=== PATIENT | male | born 1970 | race Caucasian/White ===

== ENCOUNTER 2016-07-14 21:10 | Emergency (ER) | payer OTHER ==
[~2016-07-14] VITALS: Ht 172.7 cm; Wt 75.5 kg
[~2016-07-14 21:10] MED LIST: ALBU8.5H3 INH; AZIT250T94 PO; CETI10CA PO; PRED20TA PO
[2016-07-14 21:14] VITALS: Ht 172.7 cm; Wt 75.5 kg
[2016-07-14] MEDS ORDERED: ALBUTEROL 0.083% (NEB) 2.5 MG/3 ML AMP HHN STA (21:21)
[2016-07-14] MEDS ORDERED: DEXAMETHASONE 10 MG/ML 1 ML INJ IM ONE (21:30)
[2016-07-14] MEDS ORDERED: IPRATROPIUM (NEB) 0.5 MG/2.5 ML AMP HHN ONE (21:30)
[2016-07-14] MEDS ORDERED: ALBU8.5H3 INH (23:09)
[2016-07-14] MEDS ORDERED: FLUT12HF2 IH (23:09)
[2016-07-14] MEDS ORDERED: MED4DP PO (23:10)
--- NOTE | 2016-07-14 23:17 | ERD ---
ER Documentation Chief Complaint Date/Time DATE: 07/14/16 TIME: 23:12 Chief Complaint shortness of breath x 3 hours HPI This is a 46-year-old male presents to the ER with shortness of breath for the last 3 hours. 2 days ago patient's asthma started acting up and he began to take his albuterol inhaler however it is not working. Patient denies any fevers or chills. Denies any cough or upper respiratory infection symptoms. Patient states that he has run out of his Advair and since then has been hard to control his asthma. Patient has had asthma for the last 10+ years. He has never been hospitalized for his asthma. He is never been intubated. Patient denies any chest pain. He denies any recent travel. He denies any leg pain or leg swelling. ROS 12 point review of systems was done, all negative except per HPI. Medications Home Meds Active Scripts Methylprednisolone* (Medrol* DOSE PACK) 4 Mg/Dose-Pack Tab.ds.pk, 4 MG PO . DIRECTED for 6 Days, PACKET Prov:EDIN YOUNG 07/14/16 Albuterol Sulfate* (Proair HFA*) 8.5 Gm Hfa.aer.ad, 2 PUFF INH Q4, #1 INHALER Prov:HECTOREDIN Hamilton 07/14/16 Salmeterol Xinaf-Fluticasone* (Advair HFA*) 115/21 Aerosol Inhaler, 2 INH IH BID , #1 INHALER Prov:EDIN YOUNG 07/14/16 Cetirizine Hcl* (Zyrtec*) 10 Mg Capsule, 10 MG PO DAILY, #10 TAB.CHEW Prov:NANDINI BARAKAT PA-C 02/29/16 Albuterol Sulfate* (Proair HFA*) 8.5 Gm Hfa.aer.ad, 2 PUFF INH Q4, #1 INHALER Prov:NANDINI BARAKAT PA-C 02/29/16 Prednisone* (Prednisone*) 20 Mg Tab, 60 MG PO DAILY for 4 Days, TAB Prov:NANDINI BARAKAT PA-C 02/29/16 Azithromycin* (Zithromax*) 250 Mg Tablet, 250 MG PO .PAUL DIRECTED, #6 TAB TAKE 500 MG (2 TABS) THE FIRST DAY THEN 250 MG (1 TAB) DAYS 2-5 Prov:EMERALD GLORIA DO 06/23/15 Prednisone* (Prednisone*) 20 Mg Tab, 60 MG PO DAILY for 5 Days, TAB Prov:EMERALD GLORIA DO 06/23/15 Albuterol Sulfate* (Proair HFA*) 8.5 Gm Hfa.aer.ad, 2 PUFF INH Q4, #1 INHALER Prov:EMERALD GLORIA DO 06/23/15 Allergies Allergies: Coded Allergies: Penicillins (Verified Allergy, Intermediate, RASH, 07/14/16) PMhx/Soc Medical and Surgical Hx: pt denies Surgical Hx History of Surgery: No Anesthesia Reaction: No Hx Neurological Disorder: No Hx Respiratory Disorders: Yes (asthma) Hx Cardiac Disorders: No Hx Psychiatric Problems: No Hx Miscellaneous Medical Probl: No Hx Alcohol Use: No Hx Substance Use: No Hx Tobacco Use: No Physical Exam Vitals Vital Signs Date Time Temp Pulse Resp B/P Pulse Ox O2 Delivery O2 Flow Rate FiO2 07/14/16 21:42 120 20 95 21 07/14/16 21:14 98.7 127 22 135/88 96 Physical Exam GENERAL: Patient is in moderate distress secondary to shortness of breath. HEENT: Atraumatic. CHEST: Is very wheezes in all lung mancera, no rales rhonchi or crackles. HEART: Regular rate and rhythm. No murmurs, clicks, rubs or gallops. NEURO: Alert and oriented. SKIN: There is no apparent rash or petechia. The skin is warm and dry. Results 24 hrs Current Medications Medications (Trade) Dose Ordered Sig/Duyen Route PRN Reason Start Time Stop Time Status Last Admin Dose Admin Albuterol (Proventil 0.083% (Neb)) 10 mg ONCE STAT HHN 07/14/16 21:21 07/14/16 21:22 DC 07/14/16 21:42 Ipratropium [place] (Atrovent 0.02% (Neb)) 0.5 mg ONCE ONCE HHN 07/14/16 21:30 07/14/16 21:31 DC 07/14/16 21:42 Dexamethasone (Decadron) 10 mg ONCE ONCE IM 07/14/16 21:30 07/14/16 21:31 DC 07/14/16 21:28 Procedures/MDM Differential diagnosis includes but is not limited to; STEMI, dissection, pneumothorax, PE, esophageal rupture, tamponade, pneumonia, pericarditis, GERD, musculoskeletal, endocarditis, anxiety, pneumonia. Patient is likely having an asthma exacerbation, he has a extensive history of asthma. Patient was given an hour-long nebulizer treatment in the ER and Decadron IM without any complications. Upon reexamination patient appeared significantly better and he stated that he felt better as well. Wheezing was much improved. He was no longer in any distress and he was able to complete full sentences without any shortness of breath. Patient will be sent home with Advair, albuterol, Medrol Dosepak. He needs to follow-up with his primary care doctor within 1-2 days or return to ER sooner if symptoms worsen. My medical decision making shared with the patient he understands and agrees with plan. Departure Diagnosis: Primary Impression: Asthma attack Condition: Stable Patient Instructions: Asthma, Acute (Adult) Additional Instructions: Call your primary care doctor TOMORROW for an appointment during the next 1-2 days.See the doctor sooner or return here if your condition worsens before your appointment time. EDIN YOUNG Jul 14, 2016 23:17
[2016-07-14 23:22] VITALS: BP 127/84; PULSE 89; RESP 18; TEMP 98.6
== END 2016-07-14 23:24 | disposition home or self-care (01) ==
LOC: FTE 21:10
DX: J45.901 Unspecified asthma with (acute) exacerbation (principal)
CPT/HCPCS: 94644; J1100; Z7610; 96372

== ENCOUNTER 2017-02-07 20:19 | Emergency (ER) | payer OTHER ==
[~2017-02-07] VITALS: Ht 180.3 cm; Wt 77.1 kg
[~2017-02-07 20:19] MED LIST changes: +FLUT12HF2 IH; +MED4DP PO
[2017-02-07 20:23] VITALS: Ht 180.3 cm; Wt 77.1 kg
[2017-02-07] MEDS ORDERED: IPRATROPIUM (NEB) 0.5 MG/2.5 ML AMP INH STA (20:45)
[2017-02-07] MEDS ORDERED: ALBUTEROL 0.5% (NEB) 2.5 MG/0.5 ML AMP INH STA (20:45)
[2017-02-07] MEDS ORDERED: METHYLPREDNISOLONE 125 MG INJ IV STA (20:45)
--- NOTE | 2017-02-07 20:57 | ERD ---
ER Documentation Chief Complaint Chief Complaint BIB SELF, CC: ASTHMA EXACERBATION X 1 DAY, USED INHALER UPON ARRIVAL HPI Patient is a 47-year-old male who has a history of asthma complaining of shortness of breath with the past 2 days it has been worsening. He has no chest pain. No fever. He states he has a history of asthma and this happens chronically. He has been using his inhaler albuterol but it did not help. No diaphoresis or palpitations. No other past medical history. ROS All systems reviewed and are negative except as per history of present illness. Medications Home Meds Active Scripts Prednisone* (Prednisone*) 20 Mg Tab, 40 MG PO DAILY for 4 Days, TAB Prov:GONZALEZHENRY CHELSEY 02/07/17 Salmeterol Xinaf-Fluticasone* (Advair HFA*) 45/212 Aerosol Inhaler, 2 INH IH BID , #1 INHALER Prov:HENRY GONZALEZ CHELSEY 02/07/17 Methylprednisolone* (Medrol* DOSE PACK) 4 Mg/Dose-Pack Tab.ds.pk, 4 MG PO . DIRECTED for 6 Days, PACKET Prov:EDIN YOUNG Alfonso 07/14/16 Albuterol Sulfate* (Proair HFA*) 8.5 Gm Hfa.aer.ad, 2 PUFF INH Q4, #1 INHALER Prov:EDIN YOUNG Alfonso 07/14/16 Salmeterol Xinaf-Fluticasone* (Advair HFA*) 115/21 Aerosol Inhaler, 2 INH IH BID , #1 INHALER Prov:EDIN YOUNG Alfonso 07/14/16 Cetirizine Hcl* (Zyrtec*) 10 Mg Capsule, 10 MG PO DAILY, #10 TAB.CHEW Prov:NANDINI BARAKAT PA-C 02/29/16 Albuterol Sulfate* (Proair HFA*) 8.5 Gm Hfa.aer.ad, 2 PUFF INH Q4, #1 INHALER Prov:NANDINI BARAKAT PA-C 02/29/16 Prednisone* (Prednisone*) 20 Mg Tab, 60 MG PO DAILY for 4 Days, TAB Prov:NANDINI BARAKAT PA-C 02/29/16 Azithromycin* (Zithromax*) 250 Mg Tablet, 250 MG PO .ZPACK DIRECTED, #6 TAB TAKE 500 MG (2 TABS) THE FIRST DAY THEN 250 MG (1 TAB) DAYS 2-5 Prov:EMERALD GLORIA DO 06/23/15 Prednisone* (Prednisone*) 20 Mg Tab, 60 MG PO DAILY for 5 Days, TAB Prov:EMERALD GLORIA DO 06/23/15 Albuterol Sulfate* (Proair HFA*) 8.5 Gm Hfa.aer.ad, 2 PUFF INH Q4, #1 INHALER Prov:EMERALD GLORIA DO 06/23/15 Allergies Allergies: Coded Allergies: Penicillins (Verified Allergy, Intermediate, RASH, 07/14/16) PMhx/Soc Medical and Surgical Hx: pt denies Surgical Hx History of Surgery: No Anesthesia Reaction: No Hx Neurological Disorder: No Hx Respiratory Disorders: Yes (asthma) Hx Cardiac Disorders: No Hx Psychiatric Problems: No Hx Miscellaneous Medical Probl: No Hx Alcohol Use: No Hx Substance Use: No Hx Tobacco Use: No Smoking Status: Never smoker FmHx Family History: No diabetes Physical Exam Vitals Vital Signs Date Time Temp Pulse Resp B/P Pulse Ox O2 Delivery O2 Flow Rate FiO2 02/07/17 21:24 99 24 96 21 02/07/17 20:23 98.5 117 26 152/92 100 Physical Exam INITIAL VITAL SIGNS: Reviewed by me GENERAL: Awake, alert and oriented x 4, well appearing, nontoxic, speaking in full sentences. No acute distress HEAD: Atraumatic NECK: Supple. No masses. Full range of motion. No meningismus. No midline tenderness. THROAT: No tonilar erythema or edema. No exudates. Uvula midline. No kissing tonsils. RESPIRATORY: Bilateral inspiratory wheezing in both upper and lower lung mancera with mild tripoding, speaking full sentences CV: Regular rate and rhythm. No murmurs, rubs, or gallops. ABDOMEN: Soft, non-distended. Nontender. Negative [place]. Negative [place] point tenderness. No CVA tenderness bilaterally. No guarding. No rebound. : Deffered. Results 24 hrs Current Medications Medications (Trade) Dose Ordered Sig/Duyen Route PRN Reason Start Time Stop Time Status Last Admin Dose Admin Albuterol (Proventil 0.5% (Neb)) 5 mg ONCE STAT INH 02/07/17 20:45 02/07/17 20:47 DC 02/07/17 21:24 Ipratropium [place] (Atrovent 0.02% (Neb)) 1 mg ONCE STAT INH 02/07/17 20:45 02/07/17 20:47 DC 02/07/17 21:24 Methylprednisolone Sodium Succinate (Solu-Medrol) 125 mg ONCE STAT IV 02/07/17 20:45 02/07/17 20:47 DC 02/07/17 21:18 Procedures/MDM This is a 47-year-old male who presents with asthma exacerbation. His O2 saturation is 100% however he does have some tripoding and is audibly wheezing on physical exam. He is however speaking in full sentences. He states this happens often. He is also tachycardic 117. Chest x-ray was ordered and he was given Solu-Medrol and breathing treatment of albuterol and Atrovent. Chest x- ray negative patient had significant improvement of his symptoms with the medications given and he was discharged with refill of his Advair inhaler and short course of prednisone. Patient counseled regarding my diagnostic impression and care plan. Prior to discharge all questions answered. Pt agrees with treatment plan and understands strict return precautions. Pt is instructed to follow up with primary care provider within 24-48 hours. Precautionary instructions provided including instructions to return to the ER if not improving or for any worsening or changing symptoms or concerns. Departure Diagnosis: Primary Impression: Asthma with acute exacerbation Condition: Stable HENRY GONZALEZ PA-C Feb 07, 2017 20:57
[2017-02-07] MEDS ORDERED: PRED20TA PO (21:26)
[2017-02-07] MEDS ORDERED: FLUT12HF IH (21:26)
--- NOTE | 2017-02-07 22:23 | RADRPT ---
PROCEDURE: XR Chest. CLINICAL INDICATION: Asthma TECHNIQUE: Single frontal view of the chest was obtained COMPARISON: None FINDINGS: The heart and mediastinum are within normal limits. The lungs are clear. There is no pleural effusion or pneumothorax. RPTAT: AA IMPRESSION: No acute disease. .Abhijeet Pierson MD, Date Time Electronically viewed and signed by .Abhijeet Pierson MD, on 02/07/2017 22:23 .S/
[2017-02-07 22:36] VITALS: BP 141/91; PULSE 105; RESP 20
== END 2017-02-07 22:37 | disposition home or self-care (01) ==
LOC: FTE 20:19
DX: J45.901 Unspecified asthma with (acute) exacerbation (principal)
CPT/HCPCS: 71010; 94644; 94664; 96374; J2930; Z7502; Z7610

== ENCOUNTER 2018-09-14 11:15 | Emergency (ER) | payer OTHER ==
[~2018-09-14] VITALS: Ht 172.7 cm; Wt 79.7 kg
[~2018-09-14 11:15] MED LIST changes: -ALBU8.5H3 INH; +ALBU8.5H8 INH; +AZIT250T PO; -AZIT250T94 PO; +FLUT12HF IH
[2018-09-14 11:16] VITALS: BP 144/92; PULSE 92; RESP 20; Ht 172.7 cm; Wt 79.7 kg
[2018-09-14] MEDS ORDERED: EPINEPHrine 1 MG INJ SC STA (11:49)
--- NOTE | 2018-09-14 11:59 | ERD ---
ER Documentation Chief Complaint Chief Complaint LIP SWELLING DUE ALLERGIC REACTION HPI Patient is a 48 years old male with PMHx of Asthma presenting to the clinic for lip swelling since yesterday. Patient reports eating food at a fast food restaurant prior to onset of symptoms. Patient reports that he normally eats at this restaurant and gets a rash, however, he started experiencing left upper lip swelling and "puffy cheeks." Patient admits to taking OTC Benadryl and went to sleep and woke up with upper and lower lip swelling. Patient denies SOB, neck/throat swelling or difficulty breathing. Patient denies rashes for today's visit. ROS All systems reviewed and are negative except as per history of present illness. Medications Home Meds Active Scripts Diphenhydramine Hcl* (Benadryl*) 50 Mg Cap, 50 MG PO Q6 PRN for ALLERGIC REACTION, #30 CAP Prov:JOSELUIS HARDING PA-C 09/14/18 Prednisone* (Prednisone*) 20 Mg Tab, 40 MG PO DAILY for 4 Days, TAB Prov:HENRY GONZALEZ PA-C 02/07/17 Salmeterol Xinaf-Fluticasone* (Advair HFA*) 45/212 Aerosol Inhaler, 2 INH IH BID, #1 INHALER Prov:HENRY GONZALEZ PA-C 02/07/17 Methylprednisolone* (Medrol* DOSE PACK) 4 Mg/Dose-Pack Tab.ds.pk, 4 MG PO . DIRECTED for 6 Days, PACKET Prov:EDIN YOUNG 07/14/16 Albuterol Sulfate* (Proair HFA*) 8.5 Gm Hfa.aer.ad, 2 PUFF INH Q4, #1 INHALER Prov:EDIN YOUNG 07/14/16 Salmeterol Xinaf-Fluticasone* (Advair HFA*) 115/21 Aerosol Inhaler, 2 INH IH BID, #1 INHALER Prov:EDIN YOUNG 07/14/16 Cetirizine Hcl* (Zyrtec*) 10 Mg Capsule, 10 MG PO DAILY, #10 TAB.CHEW Prov:NANDINI BARAKAT PA-C 02/29/16 Albuterol Sulfate* (Proair HFA*) 8.5 Gm Hfa.aer.ad, 2 PUFF INH Q4, #1 INHALER Prov:NANDINI BARAKAT PA-C 02/29/16 Prednisone* (Prednisone*) 20 Mg Tab, 60 MG PO DAILY for 4 Days, TAB Prov:YUVALNANDINI Ibanez PA-C 02/29/16 Azithromycin* (Zithromax*) 250 Mg Tablet, 250 MG PO .DougPACK DIRECTED, #6 TAB TAKE 500 MG (2 TABS) THE FIRST DAY THEN 250 MG (1 TAB) DAYS 2-5 Prov:DEMETRIS GLORIASTOLOS A. DO 06/23/15 Prednisone* (Prednisone*) 20 Mg Tab, 60 MG PO DAILY for 5 Days, TAB Prov:LEKKOS,DEMETRISSTOLOS A. DO 06/23/15 Albuterol Sulfate* (Proair HFA*) 8.5 Gm Hfa.aer.ad, 2 PUFF INH Q4, #1 INHALER Prov:LEKKOSDEMETRISSTOLOS A. DO 06/23/15 Allergies Allergies: Coded Allergies: Penicillins (Verified Allergy, Intermediate, RASH, 07/14/16) PMhx/Soc Medical and Surgical Hx: pt denies Surgical Hx History of Surgery: No Anesthesia Reaction: No Hx Neurological Disorder: No Hx Respiratory Disorders: Yes (asthma,sinus infection) Hx Cardiac Disorders: No Hx Psychiatric Problems: No Hx Miscellaneous Medical Probl: No Hx Alcohol Use: No Hx Substance Use: No Hx Tobacco Use: No Smoking Status: Never smoker FmHx Family History: No diabetes, No coronary disease, No other Physical Exam Vitals Vital Signs Date Temp Pulse Resp B/P (MAP) Pulse Ox O2 O2 Flow FiO2 Time Delivery Rate 09/14/18 98.1 92 20 144/92 97 11:16 (109) Physical Exam Const: No acute distress Head: Atraumatic Eyes: Normal Conjunctiva ENT: Normal External Ears, Nose and. Mild upper/lower lip and bilateral buccal mucosa swelling. No oropharyngeal edema, no tongue swelling. No cervical lymphadenopathy. Neck: Full range of motion. No meningismus. Resp: Clear to auscultation bilaterally Cardio: Regular rate and rhythm, no murmurs Skin: No petechiae or rashes Neur: Awake and alert Psych: Normal Mood and Affect Results 24 hrs Current Medications Medications Dose Sig/Duyen Start Time Status Last (Trade) Ordered Route PRN Stop Time Admin Dose Reason Admin Epinephrine 0.3 mg ONCE STAT 09/14/18 DC 09/14/18 SC 11:49 12:02 (EPINEPHrine) 09/14/18 11:52 Procedures/MDM Patient was seen and evaluated for mild allergic reaction without complication. Patient was given Epinephrine and revaluated. No lip swelling noted and patient denied any tingling sensation. Patient is stable and ready for discharge. Patient was advised to stop eating at the restaurant and follow up with PCP for allergen testing via specialist. Departure Diagnosis: Primary Impression: Allergic reaction Encounter type: initial encounter Qualified Codes: T78.40XA - Allergy, unspecified, initial encounter Condition: Stable Patient Instructions: First Aid: Allergic Reactions Referrals: [facility] Additional Instructions: Patient advised to return to the ED immediately for new or worsening symptoms. Patient advised to follow up with primary care provider in the next 24-48 hours. Patient verbalized understanding and agrees with treatment plan and course of action. If patient has no primary care they may follow up with [facility] + [facility] [address] [place] [id number] or [facility] [address] [place] [address] or [facility] [address] [place] [address] JOSELUIS HARDING PA-C Sep 14, 2018 11:59
[2018-09-14] MEDS ORDERED: BEN50 PO (12:42)
== END 2018-09-14 12:57 | disposition home or self-care (01) ==
LOC: FTE 11:15
DX: T78.1XXA Other adverse food reactions, not elsewhere classified, initial encounter (principal); R22.0 Localized swelling, mass and lump, head; J45.909 Unspecified asthma, uncomplicated; R21 Rash and other nonspecific skin eruption
CPT/HCPCS: 96372; J0171